=== PATIENT | male | born 1950 | race Caucasian/White ===

== ENCOUNTER → 2017-12-01 | Outpatient (CLI) | payer MEDICARE ==
--- NOTE | 2017-12-01 15:35 | US ---
EXAMINATION TYPE: US kidneys/renal and bladder DATE OF EXAM: 12/01/2017 COMPARISON: NONE CLINICAL HISTORY: Hematuria R31.9. gross hematuria x 1 day, no pain or h/o stones EXAM MEASUREMENTS: Right Kidney: 11.5 x 4.7 x 4.0 cm Left Kidney: 10.7 x 4.1 x 5.0 cm Right Kidney: No hydronephrosis or masses seen Left Kidney: No hydronephrosis or masses seen Bladder: wnl Bilateral Jets seen: yes Cortical medullary differentiation is maintained bilaterally. Spleen is borderline enlarged and noted incidentally. IMPRESSION: Splenomegaly. No evident renal abnormalities.
== END | disposition home or self-care (01) ==
LOC: RADUSWWP 13:56
PROVIDERS: ATTEND Family Medicine
DX: R16.1 Splenomegaly, not elsewhere classified (principal)
CPT/HCPCS: 76770

== ENCOUNTER → 2017-12-15 | Outpatient (CLI) | payer MEDICARE ==
[2017-12-18 13:05] LABS: HCV Quant Log 6.19 (<1.08)
== END | disposition home or self-care (01) ==
LOC: LABWHC1 08:51
PROVIDERS: ATTEND Physician Assistant
DX: B18.2 Chronic viral hepatitis C (principal)
CPT/HCPCS: 36415; 87522